=== PATIENT | female | born 1960 | race Caucasian/White ===

== ENCOUNTER → 2017-11-20 | Outpatient (CLI) | payer OTHER ==
[~2017-11-20] MED LIST: AMLO10TA4 PO; BACL-19 PO; DALF10TA PO; FING0.5C3 PO; FURO-92 PO; FURO40TA6 PO; GABA300C10 PO; LISI40TA PO; METO-282 PO; POTA20TA91 PO
== END ==
LOC: CVU 14:48
PROVIDERS: ATTEND Internal Medicine Cardiovascular Disease
DX: G35 Multiple sclerosis (principal); I10 Essential (primary) hypertension
CPT/HCPCS: 93922